=== PATIENT | male | born 2000 | race Caucasian/White ===

== ENCOUNTER 2019-10-01 08:43 | Inpatient (IN) | payer BC, OTHER ==
[2019-10-01 09:41] VITALS: BMI 28.5
--- NOTE | 2019-10-01 10:34 | HP ---
"CIWA Score Nausea/Vomitin-No Nausea/No Vomiting Muscle Tremors: None Anxiety: 2 Agitation: 2 Paroxysmal Sweats: 2 Orientation: 2-Disoriented Date<2 days Tacttile Disturbances: 0-None Auditory Disturbances: 0-None Visual Disturbances: 0-None Headache: 0-None Present CIWA-Ar Total Score: 8 - Admission Criteria OASAS Guidelines: Admission for Medically Managed Detox: Requires at least one of the followin. CIWA greater than 12 2. Seizures within the past 24 hours 3. Delirium tremens within the past 24 hours 4. Hallucinations within the past 24 hours 5. Acute intervention needed for co occurring medical disorder 6. Acute intervention needed for co occurring psychiatric disorder 7. Severe withdrawal that cannot be handled at a lower level of care (continued vomiting, continued diarrhea, abnormal vital signs) requiring intravenous medication and/or fluids 8. Patient presents the following: None of the above Admission Criteria Met: Admission criteria not met Admission ROS S - HPI Allergies/Adverse Reactions: Allergies Allergy/AdvReac Type Severity Reaction Status Date / Time No Known Allergies Allergy Verified 10/01/19 09:12 History of Present Illness: Search Terms: mayte gonzalez, 2000 Search Date: 10/01/2019 10:29:25 AM The Drug Utilization Report below displays all of the controlled substance prescriptions, if any, that your patient has filled in the last twelve months. The information displayed on this report is compiled from pharmacy submissions to the Department, and accurately reflects the information as submitted by the pharmacies. This report was requested by: Karla Rehman | Reference #: [id number] There are no results for the search terms that you entered. pt here requesting detox from xanax , claims 3-4 mg/day since 3 weeks ago , started at age 15 ,intermittently since , latest use yesterday . had seizure Jul 2019 after stopping xanax Exam Limitations: No Limitations - Ebola screening Have you traveled outside of the country in the last 21 days: No Have you had contact with anyone from an Ebola affected area: No - Review of Systems Constitutional: No Symptoms Reported EENT: reports: No Symptoms Reported Respiratory: reports: No Symptoms reported Cardiac: reports: No Symptoms Reported GI: reports: See HPI : reports: No Symptoms Reported Musculoskeletal: reports: No Symptoms Reported Integumentary: reports: No Symptoms Reported Neuro: reports: Seizure Endocrine: reports: No Symptoms Reported Psychiatric: reports: Anxious, Disorientated Patient History - Smoking Cessation Smoking history: Current every day smoker Have you smoked in the past 12 months: Yes Hx Chewing Tobacco Use: No Initiated information on smoking cessation: No - Substances abused Alprazolam (Xanax) Other (specify): 2mg Substance route: Oral Frequency: Daily Amount used: 3-4 mg Age of first use: 15 Date of last use: 09/30/19 Admission Physical Exam BHS - Vital Signs Vital Signs: Vital Signs - 24 hr 10/01/19 09:11 Temperature 96.8 F L Pulse Rate 69 Respiratory 18 Rate Blood Pressure 108/65 - Physical General Appearance: Yes: Mild Distress HEENTM: Yes: EOMI, Hearing grossly Normal, Normocephalic, Normal Voice Respiratory: Yes: Chest Non-Tender, Lungs Clear, Normal Breath Sounds, No Respiratory Distress, No Accessory Muscle Use Neck: Yes: No masses,lesions,Nodules, Trachea in good position Cardiology: Yes: Regular Rhythm, Regular Rate, S1, S2 Abdominal: Yes: Non Tender, Soft Musculoskeletal: Yes: Gait Steady Extremities: Yes: Normal Range of Motion, Non-Tender Neurological: Yes: Alert, Motor Strength 5/5, Depressed Affect Integumentary: Yes: Warm - Diagnostic (1) Sedative, hypnotic or anxiolytic abuse Current Visit: Yes Status: Acute Breathalyzer - Breathalyzer Breathalyzer: 0 Urine Drug Screen - Test Device Lot number: [id number] Expiration date: 04/15/21 - Control Is test valid?: Yes - Results Drug screen NEGATIVE: No Urine drug screen results: THC-Marijuana, BZO-Benzodiazepines Inpatient Rehab Admission - Rehab Decision to Admit Inpatient rehab admission?: No"
[2019-10-01] MEDS ORDERED: chlordiazePOXIDE HCL 25 MG CAPSULE PO ONE (10:49)
[2019-10-01] MEDS ORDERED: chlordiazePOXIDE HCL 10 MG CAPSULE PO PRN (10:49)
[2019-10-01] MEDS ORDERED: hydrOXYzine PAMOATE 25 MG CAPSULE (FP) PO PRN (10:55)
[2019-10-01] MEDS ORDERED: BISMUTH SUBSALICYLATE 262 MG/15 ML BTL PO PRN (10:55)
[2019-10-01] MEDS ORDERED: METHOCARBAMOL 500 MG TABLET PO PRN (10:55)
[2019-10-01] MEDS ORDERED: MELATONIN 5 MG TABLETS PO PRN (10:55)
[2019-10-01] MEDS ORDERED: MAGNESIUM HYDROX 2400MG/30ML ORAL SUSPENSION 30 ML CUP PO PRN (10:55)
[2019-10-01] MEDS ORDERED: MAG HYDROX/AL HYDROX/SIMETH 30 ML UNIT-DOSE CUP PO PRN (10:55)
[2019-10-01] MEDS ORDERED: ACETAMINOPHEN 325 MG TABLET (FP) PO PRN ×2 (10:55)
[2019-10-01] MEDS ORDERED: IBUPROFEN 400 MG TABLET (FP) PO PRN (10:55)
[2019-10-01] MEDS ORDERED: MAGNESIUM CITRATE 300 ML BOTTLE PO PRN (10:55)
[2019-10-01] MEDS ORDERED: MENTHOL/PHENOL 1 EACH UD MM PRN (10:55)
[2019-10-01] MEDS: NICOTINE 7 MG/24 HOURS TOPICAL PATCH TD SCH (12:12)
[2019-10-01] MEDS: chlordiazePOXIDE HCL 25 MG CAPSULE PO SCH ×3 (12:12→22:03)
[2019-10-01] MEDS: NICOTINE POLACRILEX 2 MG GUM BUC PRN ×2 (13:09→17:26)
[2019-10-01 14:21] LABS: HEMATOCRIT 47.9 % (35.4-49); HEMOGLOBIN 16.5 GM/dL (11.7-16.9); MCH 30.3 pg (25.7-33.7); MCHC 34.4 g/dl (32.0-35.9); MEAN CELL VOLUME 87.9 fl (80-96); MEAN PLT VOLUME 9.4 fl (7.5-11.1); PLATELET COUNT 227 K/MM3 (134-434); RBC 5.45 M/mm3 (4.00-5.60); RDW 13.3 % (11.9-15.9); WHITE BLOOD COUNT 5.2 K/mm3 (4.0-10.0)
[2019-10-01 14:33] LABS: BILIRUBIN,TOTAL 0.6 mg/dL (0.2-1); BLOOD UREA NITROGEN 11.5 mg/dL (7-18); CALCIUM 9.2 mg/dL (8.5-10.1); CREATININE 1.3 mg/dL (0.55-1.3); POTASSIUM 3.9 mmol/L (3.5-5.1); TOT PROT 6.9 g/dl (6.4-8.2)
[2019-10-01] MEDS: THIAMINE HCL 100 MG TABLET (FP) PO SCH (22:03)
[2019-10-02] MEDS: chlordiazePOXIDE 5 MG CAPSULE PO SCH ×3 (05:08→22:01)
--- NOTE | 2019-10-02 09:08 | PN ---
S CIWA - CIWA Score Nausea/Vomitin-Mild Nausea/No Vomiting Muscle Tremors: None Anxiety: 2 Agitation: 0-Normal Activity Paroxysmal Sweats: 2 Orientation: 0-Oriented Tacttile Disturbances: 1-Very Mild Itch/Numbness Auditory Disturbances: 0-None Visual Disturbances: 0-None Headache: 0-None Present CIWA-Ar Total Score: 6 BHS Progress Note (SOAP) Subjective: interrupted sleep, sweats, anxiety Objective: 10/02/19 09:06 Vital Signs Temperature 97.6 F 10/02/19 06:41 Pulse Rate 51 L 10/02/19 06:41 Respiratory Rate 18 10/02/19 06:41 Blood Pressure 99/54 L 10/02/19 06:41 O2 Sat by Pulse Oximetry (%) Laboratory Tests 10/01/19 10/01/19 11:10 11:10 WBC 5.2 RBC 5.45 Hgb 16.5 Hct 47.9 MCV 87.9 MCH 30.3 MCHC 34.4 RDW 13.3 Plt Count 227 MPV 9.4 Sodium 139 Potassium 3.9 Chloride 105 Carbon Dioxide 30 Anion Gap 4 L BUN 11.5 Creatinine 1.3 Est GFR (CKD-EPI)AfAm 91.68 Est GFR (CKD-EPI)NonAf 79.10 Random Glucose 130 H Calcium 9.2 Total Bilirubin 0.6 AST 18 ALT 25 Alkaline Phosphatase 65 Total Protein 6.9 Albumin 4.0 pt aox3 in nad ambulating well Assessment: 10/02/19 09:07 withdrawal sx's elevated glucose Plan: cont. detox increase fluids bgm fasting
[2019-10-02] MEDS: NICOTINE POLACRILEX 2 MG GUM BUC PRN ×3 (09:24→22:03)
[2019-10-02] MEDS: PRENATAL VITAMINS W/ FOLIC ACID TABLET (FP) PO SCH (10:06)
[2019-10-02] MEDS: NICOTINE 7 MG/24 HOURS TOPICAL PATCH TD SCH (10:06)
[2019-10-02] MEDS: THIAMINE HCL 100 MG TABLET (FP) PO SCH (22:01)
[2019-10-03] MEDS ORDERED: chlordiazePOXIDE HCL 10 MG CAPSULE PO PRN
[2019-10-03] MEDS: chlordiazePOXIDE HCL 10 MG CAPSULE PO SCH ×3 (06:10→22:21)
--- NOTE | 2019-10-03 09:55 | PN ---
S CIWA - CIWA Score Nausea/Vomitin-No Nausea/No Vomiting Muscle Tremors: None Anxiety: 1-Mildly Anxious Agitation: 0-Normal Activity Paroxysmal Sweats: 2 Orientation: 0-Oriented Tacttile Disturbances: 0-None Auditory Disturbances: 0-None Visual Disturbances: 0-None Headache: 0-None Present CIWA-Ar Total Score: 3 BHS Progress Note (SOAP) Subjective: c/o mild withdrawal symptoms. Objective: 10/03/19 09:53 Vital Signs 10/03/19 10/03/19 10/03/19 03:30 06:13 09:05 Temperature 97.1 F L 97.0 F L Pulse Rate 58 L 65 Respiratory 16 16 16 Rate Blood Pressure 114/69 111/75 Laboratory Last Values WBC 5.2 K/mm3 (4.0-10.0) 10/01/19 11:10 RBC 5.45 M/mm3 (4.00-5.60) 10/01/19 11:10 Hgb 16.5 GM/dL (11.7-16.9) 10/01/19 11:10 Hct 47.9 % (35.4-49) 10/01/19 11:10 MCV 87.9 fl (80-96) 10/01/19 11:10 MCH 30.3 pg (25.7-33.7) 10/01/19 11:10 MCHC 34.4 g/dl (32.0-35.9) 10/01/19 11:10 RDW 13.3 % (11.9-15.9) 10/01/19 11:10 Plt Count 227 K/MM3 (134-434) 10/01/19 11:10 MPV 9.4 fl (7.5-11.1) 10/01/19 11:10 Sodium 139 mmol/L (136-145) 10/01/19 11:10 Potassium 3.9 mmol/L (3.5-5.1) 10/01/19 11:10 Chloride 105 mmol/L (98-107) 10/01/19 11:10 Carbon Dioxide 30 mmol/L (21-32) 10/01/19 11:10 Anion Gap 4 MMOL/L (8-16) L 10/01/19 11:10 BUN 11.5 mg/dL (7-18) 10/01/19 11:10 Creatinine 1.3 mg/dL (0.55-1.3) 10/01/19 11:10 Est GFR (CKD-EPI)AfAm 91.68 10/01/19 11:10 Est GFR (CKD-EPI)NonAf 79.10 10/01/19 11:10 Random Glucose 130 mg/dL (74-106) H 10/01/19 11:10 Calcium 9.2 mg/dL (8.5-10.1) 10/01/19 11:10 Total Bilirubin 0.6 mg/dL (0.2-1) 10/01/19 11:10 AST 18 U/L (15-37) 10/01/19 11:10 ALT 25 U/L (13-61) 10/01/19 11:10 Alkaline Phosphatase 65 U/L (45-117) 10/01/19 11:10 Total Protein 6.9 g/dl (6.4-8.2) 10/01/19 11:10 Albumin 4.0 g/dl (3.4-5.0) 10/01/19 11:10 RPR Titer Nonreactive (NONREACTIVE) 10/01/19 11:10 Labs noted. Assessment: 10/03/19 09:54 AOX3, in no acute respiratory distress. Full ROM, ambulating in the unit. Mild Withdrawal symptoms. For d/c tomorrow. Plan: continue detox. D/C in AM.
[2019-10-03] MEDS: PRENATAL VITAMINS W/ FOLIC ACID TABLET (FP) PO SCH (10:23)
[2019-10-03] MEDS: NICOTINE 7 MG/24 HOURS TOPICAL PATCH TD SCH (10:23)
[2019-10-03] MEDS: NICOTINE POLACRILEX 2 MG GUM BUC PRN ×3 (10:24→22:55)
--- NOTE | 2019-10-03 11:39 | CONSULT ---
[facility] Psychiatric Consult - Data Date of interview: 10/03/19 Admission source: [facility] Identifying data: First visit at [facility] and admission to [address] [place] [address] for this 18 y/o male self-referred for detoxification treatment. GOOD issues : cannabis, benzodiazepine (xanax). Patient is single, no dependents, domiciled ( lives with parents), currently employed and supported by his parents. Substance Abuse History: Discussed with the patient. Details in current [facility] report as follows : Smoking history: Current every day smoker. Have you smoked in the past 12 months: Yes. Hx Chewing Tobacco Use: No. Initiated information on smoking cessation: No. - Substances abused. Alprazolam (Xanax). Other ( specify): 2mg. Substance route: Oral. Frequency: Daily. Amount used: 3-4 mg. Age of first use: 15. Date of last use: 09/30/19 Medical History: Patient reports recent history of one seizure episode ( withdrawal from xanax) in July 2019. Mr Hu, otherwise, endorses good general health. Psychiatric History: Patient denies history of psychiatric hospitalizations. Mr Hu states that he has been " mistakenly " diagnosed with ADHD in the past. Patient indicates that he has been briefly prescribed seroquel + trazodone, two years ago, during his admission to the [facility] program in [place]. Patient denies current affiliation with psychiatric care [employer] providers. Denies history of suicide attempts. Physical/Sexual Abuse/Trauma History: Patient denies. Additional Comment: Urine drug screen results: THC-Marijuana, BZO- Benzodiazepines. Noted. Mental Status Exam - Mental Status Exam Alert and Oriented to: Time, Place, Person Cognitive Function: Good Patient Appearance: Well Groomed Mood: Anxious (mildly anxious), Hopeful Affect: Appropriate, Normal Range Patient Behavior: Appropriate, Cooperative Speech Pattern: Clear, Appropriate Voice Loudness: Normal Thought Process: Intact, Goal Oriented Thought Disorder: Not Present Hallucinations: Denies Suicidal Ideation: Denies Homicidal Ideation: Denies Insight/Judgement: Fair Sleep: Poorly, Difficulty falling asleep Appetite: Good Gait/Station: Normal Psychiatric Findings - Problem List ([place] 1, 2,3) (1) Sedative, hypnotic or anxiolytic abuse Current Visit: Yes Status: Acute (2) Insomnia Current Visit: Yes Status: Chronic - Initial Treatment Plan Initial Treatment Plan: Psychoeducation. Sleep hygiene. Detoxification. Insomnia is addressed with melatonin at bedtime. Rehabilitation offered to patient. Mr Yoon declines. Observation.
[2019-10-03] MEDS ORDERED: QUEtiapine FUMARATE 100 MG TABLET (FP) PO SCH (22:00)
[2019-10-03] MEDS: THIAMINE HCL 100 MG TABLET (FP) PO SCH (22:21)
[2019-10-04] MEDS ORDERED: chlordiazePOXIDE HCL 10 MG CAPSULE PO ONE (05:00)
[2019-10-04 09:04] VITALS: BP 127/74; PULSE 70; TEMP 97.7
--- NOTE | 2019-10-04 09:13 | DS ---
[facility] Detox Discharge Summary Admission Date: 10/01/19 Discharge Date: 10/04/19 - History Present History: Sedative Dependence Additional Comments: 18 years old male admitted on 10/01/19 for benzo withdrawal sx management treated with librium detox regimen completed librium regimen and tolerated well alert oriented x 3 seen by psychiatrist no medical intervention at this time cardiac s1s2 regular rate rhythm respiratory clear lungs bilaterally on auscultation skin warm and dry Pertinent Past History: patient prefers to return to work and attend community AA groups and meetings and agrees to consider [facility] in patient chemical dependent rehab - Physical Exam Results Vital Signs: Vital Signs Temperature 97.7 F 10/04/19 09:04 Pulse Rate 70 10/04/19 09:04 Respiratory Rate 18 10/04/19 09:04 Blood Pressure 127/74 10/04/19 09:04 O2 Sat by Pulse Oximetry (%) Pertinent Admission Physical Exam Findings: benzo withdrawal Laboratory Last Values WBC 5.2 K/mm3 (4.0-10.0) 10/01/19 11:10 RBC 5.45 M/mm3 (4.00-5.60) 10/01/19 11:10 Hgb 16.5 GM/dL (11.7-16.9) 10/01/19 11:10 Hct 47.9 % (35.4-49) 10/01/19 11:10 MCV 87.9 fl (80-96) 10/01/19 11:10 MCH 30.3 pg (25.7-33.7) 10/01/19 11:10 MCHC 34.4 g/dl (32.0-35.9) 10/01/19 11:10 RDW 13.3 % (11.9-15.9) 10/01/19 11:10 Plt Count 227 K/MM3 (134-434) 10/01/19 11:10 MPV 9.4 fl (7.5-11.1) 10/01/19 11:10 Sodium 139 mmol/L (136-145) 10/01/19 11:10 Potassium 3.9 mmol/L (3.5-5.1) 10/01/19 11:10 Chloride 105 mmol/L (98-107) 10/01/19 11:10 Carbon Dioxide 30 mmol/L (21-32) 10/01/19 11:10 Anion Gap 4 MMOL/L (8-16) L 10/01/19 11:10 BUN 11.5 mg/dL (7-18) 10/01/19 11:10 Creatinine 1.3 mg/dL (0.55-1.3) 10/01/19 11:10 Est GFR (CKD-EPI)AfAm 91.68 10/01/19 11:10 Est GFR (CKD-EPI)NonAf 79.10 10/01/19 11:10 Random Glucose 130 mg/dL (74-106) H 10/01/19 11:10 Calcium 9.2 mg/dL (8.5-10.1) 10/01/19 11:10 Total Bilirubin 0.6 mg/dL (0.2-1) 10/01/19 11:10 AST 18 U/L (15-37) 10/01/19 11:10 ALT 25 U/L (13-61) 10/01/19 11:10 Alkaline Phosphatase 65 U/L (45-117) 10/01/19 11:10 Total Protein 6.9 g/dl (6.4-8.2) 10/01/19 11:10 Albumin 4.0 g/dl (3.4-5.0) 10/01/19 11:10 RPR Titer Nonreactive (NONREACTIVE) 10/01/19 11:10 lab noted - Treatment Hospital Course: Detox Protocol Followed, Detoxed Safely, Responded well, Discharged Condition Good, Rehab Referral Accepted Patient has Accepted a Re[facility] Referral to: [facility] - Medication Discharge Medications: Ambulatory Orders NK [No Known Home Medication] 10/01/19 - Diagnosis (1) Sedative, hypnotic or anxiolytic abuse Status: Acute - AMA Did Patient Leave Against Medical Advice: No CIWA Score - CIWA Score Nausea/Vomitin-No Nausea/No Vomiting Muscle Tremors: None Anxiety: 0-No Anxiety, at Ease Agitation: 0-Normal Activity Paroxysmal Sweats: 1-Minimal Palms Moist Orientation: 0-Oriented Tacttile Disturbances: 0-None Auditory Disturbances: 0-None Visual Disturbances: 0-None Headache: 0-None Present CIWA-Ar Total Score: 1
[2019-10-04] MEDS: NICOTINE POLACRILEX 2 MG GUM BUC PRN (09:22)
== END 2019-10-04 09:28 | disposition home or self-care (01) | DRG 897 ==
LOC: YASAS 08:43 → Y3N 11:25
PROVIDERS: ADMIT Allergy & Immunology; ATTEND Allergy & Immunology
PROC: HZ2ZZZZ Detoxification Services for Substance Abuse Treatment (ICD-10-PCS; principal; 2019-10-01)
DX: F13.230 Sedative, hypnotic or anxiolytic dependence with withdrawal, uncomplicated (principal); F17.210 Nicotine dependence, cigarettes, uncomplicated; G47.00 Insomnia, unspecified; R73.9 Hyperglycemia, unspecified; Z86.69 Personal history of other diseases of the nervous system and sense organs
CPT/HCPCS: 36415; 80053; 85027; 86593